=== PATIENT | female | born 1985 ===

== ENCOUNTER 2018-01-05 16:02 | Inpatient (IN) | payer OTHER ==
[~2018-01-05] VITALS: Ht 157.5 cm; Wt 65.8 kg
[2018-01-21] MEDS ORDERED: FOLIC ACID1 MG PO (15:04)
[2018-01-21] MEDS ORDERED: PRENATAL FORMU1 EAC1 PO (15:05)
[2018-01-21] MEDS ORDERED: IRON325 MG PO (15:05)
== END 2018-01-23 13:30 | disposition home or self-care (01) | DRG 807 ==
LOC: LDR 01-21 13:16 → OB/GYN 01-21 21:22
PROC: 10E0XZZ Delivery of Products of Conception, External Approach (ICD-10-PCS; principal; 2018-01-21)
PROC: 0HQ9XZZ Repair Perineum Skin, External Approach (ICD-10-PCS; 2018-01-21)
PROC: 10907ZC Drainage of Amniotic Fluid, Therapeutic from Products of Conception, Via Natural or Artificial Opening (ICD-10-PCS; 2018-01-21)
PROC: 3E033VJ Introduction of Other Hormone into Peripheral Vein, Percutaneous Approach (ICD-10-PCS; 2018-01-21)
PROC: 4A1HXCZ Monitoring of Products of Conception, Cardiac Rate, External Approach (ICD-10-PCS; 2018-01-21)
DX: O70.0 First degree perineal laceration during delivery (principal); Z37.0 Single live birth; Z3A.39 39 weeks gestation of pregnancy; O90.81 Anemia of the puerperium